=== PATIENT | female | born 1975 | race Caucasian/White ===

== ENCOUNTER 2017-02-05 18:53 | Emergency (ER) | payer MEDICAID ==
[~2017-02-05] VITALS: Ht 154.9 cm; Wt 54.0 kg
[2017-02-05] MEDS ORDERED: MULT-1146 PO (19:14)
[2017-02-05] MEDS ORDERED: KETOROLAC 60MG/2ML VIAL IM ONE (22:15)
[2017-02-05] MEDS ORDERED: LIDOCAINE HCL 1%/EPI 1:200,000 30 ML VIAL MC ONE (22:15)
[2017-02-06] MEDS ORDERED: BACITRACIN ZINC OINT UDPKT TOP ONE (01:00)
[2017-02-06 01:05] VITALS: BP 128/80
== END 2017-02-06 01:07 | disposition home or self-care (01) ==
LOC: ER 22:32
DX: S61.412A Laceration without foreign body of left hand, initial encounter (principal); Z90.49 Acquired absence of other specified parts of digestive tract; W25.XXXA Contact with sharp glass, initial encounter; Y93.89 Activity, other specified; Y92.018 Other place in single-family (private) house as the place of occurrence of the external cause
CPT/HCPCS: 12001; 73130; 81025; 99284; Z7610; J1885